=== PATIENT | male | born 1995 | race Caucasian/White ===

== ENCOUNTER → 2017-01-27 | Outpatient (CLI) | payer OTHER ==
--- NOTE | 2017-01-27 13:53 | US ---
HISTORY: Bilateral upper quadrant pain Study: Bilateral renal sonogram Comparison: None Findings: The right kidney measured 9.3 x 4.5 x 5.9 centimeter. The left kidney measured 10.5 x 4.5 x 4.7 cent imeters. Cortical thickness and cortical echogenicity appear normal. No solid masses, hydronephrosis , stones, or perinephric fluid collections were identified. There does appear to be some thickening of the bladder wall which could be due to nondistention or could represent edema secondary to cystit is. Clinical correlation is recommended. IMPRESSION: No definite renal abnormality Apparent thickening of the bladder wall which could be due to nondistention were could be related to edema related to infection. Clinical correlation is recommended. Reported By:
== END ==
LOC: RAD 11:16
PROVIDERS: ATTEND Specialist
DX: R10.11 Right upper quadrant pain (principal); R10.12 Left upper quadrant pain
CPT/HCPCS: 76770